=== PATIENT | female | born 1980 | race Caucasian/White ===

== ENCOUNTER 2016-10-22 21:39 | Emergency (ER) | payer BC ==
[2016-10-22 21:50] VITALS: BP 138/67
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
--- NOTE | 2016-10-24 08:03 | CR ---
Right foot: Four views of the right foot were obtained. Comparison: No previous foot exam. Soft tissue swelling is identified. Several lucent lines are identified within the calcaneus compatible with fracture. No additional bony abnormality is identified. Impression: 1. Slightly comminuted fracture within the calcaneus. 2. Soft tissue swelling. Diagnostic code #3
--- NOTE | 2016-10-24 08:03 | CT ---
CT right foot Technique: Multiple axial sections were obtained through the right foot. Reconstructed coronal and sagittal images were reviewed. Comparison: Previous right foot radiograph performed earlier on the same day (9:58 PM). Findings: Mildly comminuted calcaneal fracture is seen. Superior calcaneal fracture line is slightly posterior to the subtalar joint. There is one fracture line more anteriorly within the calcaneus extending into the mid subtalar joint. One fracture line extends into the calcaneocuboid joint. Greatest displacement of the calcaneal fracture is approximately 4.2 mm. No additional fracture is identified within the right foot. Diffuse soft tissue swelling is identified. Impression: 1. Comminuted right calcaneal fracture. Greatest displacement is 4.2 mm. Fracture extends into the mid subtalar joint and into the calcaneocuboid joint. 2. Diffuse soft tissue swelling. Diagnostic code #5 Agree with preliminary report issued by [facility] ([facility] preliminary report dictated on 10/23/16, 12:13 AM Central Time)
== END 2016-10-22 23:30 | disposition home or self-care (01) ==
LOC: JD.ED 21:39
DX: S92.014A Nondisplaced fracture of body of right calcaneus, initial encounter for closed fracture (principal); F17.210 Nicotine dependence, cigarettes, uncomplicated; W13.1XXA Fall from, out of or through bridge, initial encounter; Y92.828 Other wilderness area as the place of occurrence of the external cause
CPT/HCPCS: 73630-26-RT; 73630-RT; 73700-26-RT; 73700-RT; 99283; 99284-25

== ENCOUNTER 2018-04-22 17:17 | Emergency (ER) | payer OTHER, BC ==
[2018-04-22 17:32] VITALS: BP 115/63
[2018-04-22] MEDS ORDERED: Sodium Chloride 0.9% 10 ML Syringe FLUSH PRN (17:39)
[2018-04-22] MEDS ORDERED: HYDROmorphone 1 MG/ML Syringe IVPUSH ONE (17:40)
[2018-04-22] MEDS ORDERED: Ondansetron 4 MG/2 ML SDV IVPUSH ONE (17:40)
--- NOTE | 2018-04-22 17:45 | EDM.PDOC ---
ED HPI GENERAL MEDICAL PROBLEM - General Chief Complaint: Abdominal Pain Stated Complaint: 17 WKS PG Time Seen by Provider: 04/22/18 17:33 Source of Information: Reports: Patient, Family (spouse) History Limitations: Reports: No Limitations - History of Present Illness INITIAL COMMENTS - FREE TEXT/NARRATIVE: 37-year-old female presents to the ED with acute onset of right lower quadrant abdominal pain that started about 20 minutes ago. She was wrestling with her youngster at that time he is 3-1/2-4 years old. She had a meniscus scissors hold and was holding him and tickling him I a wrestling. Jono suddenly in her right lower quadrant of her abdomen that hurts to breathe. Pain radiates slightly towards the right lateral abdominal wall but not into her flank. There is no dysuria urgency or frequency. There's been no bleeding per vagina. She is currently 17 weeks gestation today. Also been working normally. She denies any fever or chills. Onset: Today Onset Date: 04/22/18 Onset Time: 17:15 Duration: Minutes: Location: Reports: Abdomen (Right lower quadrant of the abdomen.) Quality: Reports: Ache, Burning Severity: Moderate Improves with: Reports: Rest (78-10 better if she holds still) Worsens with: Reports: Movement Context: Reports: Other (Spontaneous occurrence while wrestling with her youngster.). 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 EDC has been set a September 29, 2018.) : 2 Para: 1 Social & Family History - Caffeine Use Caffeine Use: Reports: None - Living Situation & Occupation Living situation: Reports: Single, with Significant Other Occupation: Employed ED ROS GENERAL - Review of Systems Review Of Systems: See Below Constitutional: Denies: Fever, Chills, Malaise, Weakness, Fatigue, Decreased Appetite, Weight Loss HEENT: Reports: No Symptoms Respiratory: Reports: Shortness of Breath Cardiovascular: Reports: No Symptoms Endocrine: Reports: No Symptoms GI/Abdominal: Reports: Abdominal Pain (See history of present illness). Denies : Constipation, Diarrhea, Nausea, Stool Incontinence, Vomiting : Reports: Frequency Musculoskeletal: Reports: No Symptoms Skin: Reports: No Symptoms Neurological: Reports: No Symptoms Psychiatric: Reports: No Symptoms Hematologic/Lymphatic: Reports: No Symptoms Immunologic: Reports: No Symptoms ED EXAM, GI/ABD - Physical Exam Exam: See Below Exam Limited By: No Limitations General Appearance: Alert, WD/WN, Moderate Distress (She is in obvious quite significant pain. She's walking very slowly. She is holding onto her right lower quadrant hemoglobin laying on the bed.) Eyes: Bilateral: Normal Appearance Respiratory/Chest: No Respiratory Distress, Lungs Clear, Normal Breath Sounds, Splinting Cardiovascular: Normal Peripheral Pulses (Right splinting she's taking shallow respirations the normal.), Regular Rate, Rhythm, No Edema, No Gallop, No Murmur , No Rub GI/Abdominal Exam: Normal Bowel Sounds, No Abnormal Bruit, Tender (Uterus is well localized to the lateral aspect of the right uterus at the insertion of the round ligament. There is guarding in this area but no rebound tenderness.), Other (Vertically she is 17 weeks gestation with the uterine fundus 2 cm below the umbilicus. She has evidence of a previous umbilical ring.). No: Abnormal Bowel Sounds Back Exam: Normal Inspection, Full Range of Motion. No: CVA Tenderness (L), CVA Tenderness (R) Extremities: Normal Inspection, Normal Range of Motion, Non-Tender, No Pedal Edema Neurological: Alert, Oriented, CN II-XII Intact, Normal Cognition, Normal Gait Psychiatric: Normal Affect, Normal Mood Skin Exam: Warm, Dry, Intact, Normal Color, No Rash Course - Vital Signs Last Recorded V/S: Last Vital Signs Temp 36.3 C 04/22/18 17:27 Pulse 75 04/22/18 17:27 Resp 16 04/22/18 17:27 BP 115/63 04/22/18 17:27 Pulse Ox 100 04/22/18 17:27 - Orders/Labs/Meds Orders: Active Orders 24 hr Category Date Time Status Peripheral IV Care [RC] . DIRECTED Care 04/22/18 17:39 Active Sodium Chloride 0.9% [Saline Flush] Med 04/22/18 17:39 Active 10 ml FLUSH ASDIRECTED PRN Peripheral IV Insertion Adult [OM.PC] Stat Oth 04/22/18 17:39 Ordered Medication Orders Sodium Chloride (Saline Flush) 10 ml FLUSH ASDIRECTED PRN PRN Reason: Keep Vein Open Last Admin: 04/22/18 18:08 Dose: 10 ml Labs: Laboratory Tests 04/22/18 Range/Units 17:50 Urine Color Light yellow (Yellow) Urine Appearance Clear (Clear) Urine pH 7.0 (5.0-8.0) Ur Specific [place] 1.015 (1.005-1.030) Urine Protein Negative (Negative) Urine Glucose (UA) Negative (Negative) Urine Ketones Negative (Negative) Urine Occult Blood Negative (Negative) Urine Nitrite Negative (Negative) Urine Bilirubin Negative (Negative) Urine Urobilinogen 0.2 (0.2-1.0) Ur Leukocyte Esterase Negative (Negative) Urine RBC 0-5 (0-5) /hpf Urine WBC 0-5 (0-5) /hpf Ur Epithelial Cells 0-5 (0-5) /hpf Urine Bacteria Few (FEW) /hpf Urine Mucus Few (FEW) /hpf Meds: Medications Generic Name Dose Route Start Last Admin Trade Name Freq PRN Reason Stop Dose Admin Sodium Chloride 10 ml 04/22/18 17:39 04/22/18 18:08 Saline Flush FLUSH 10 ml ASDIRECTED PRN Administration Keep Vein Open Discontinued Medications Generic Name Dose Route Start Last Admin Trade Name Freq PRN Reason Stop Dose Admin Hydromorphone HCl 0.5 mg 04/22/18 17:40 04/22/18 18:10 Dilaudid IVPUSH 04/22/18 17:41 0.5 mg ONETIME ONE Administration Ondansetron HCl 4 mg 04/22/18 17:40 04/22/18 18:08 Zofran IVPUSH 04/22/18 17:41 4 mg ONETIME ONE Administration - Radiology Interpretation Free Text/Narrative:: 37-year-old female who is 2 para 1 presents to the ED with acute onset of severe right lower quadrant abdominal pain that started about 20 minutes prior to coming to the ED. She was wrestling with her youngster at the time she had him in a scissors hold and was tickling him and thus they were wrestling around. She developed sudden onset of right lower quadrant abdominal pain during this episode. She is walking hunched over slightly and holding onto her right lower quadrant when she comes into the ED. Examination shows bowel sounds are present. She doesn't have any nausea vomiting. Pain is very well localized to the right side of the uterus and overlying abdominal wall right at the insertion of the round ligament. There is no true abdominal guarding or rigidity. Plan urinalysis will be collected. Will start a saline lock and give her Dilaudid 0.5 mg IV with Zofran 4 mg IV for acute pain relief as she is having quite a bit of discomfort. I will then proceed with a bedside ultrasound once she is more comfortable. - Re-Assessments/Exams Free Text/Narrative Re-Assessment/Exam: 04/22/18 18:15 urinalysis is completely normal. 04/22/18 18:23 bedside ultrasound completed. No signs of abruption or subchorionic hemorrhage. Active fetus with good heart tones in the 160s. Gluten gestation. Pain is still very well localized to the insertion of the round ligament on the right side. Pain is much improved after Dilaudid and Zofran. Patient advised to take life easy for the next 4-5 days as it'll be tender with certain movements such as coughing sneezing or lifting. 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 She will follow-up with her BILLING COLLECTIONS SPECIALIST if any further problems occur. Departure - Departure Time of Disposition: 18:24 Disposition: Home, Self-Care 01 Condition: Fair Clinical Impression: Acute abdominal pain in right lower quadrant, Pain of round ligament during , Second trimester - Discharge Information *PRESCRIPTION DRUG MONITORING PROGRAM REVIEWED*: Not Applicable *COPY OF PRESCRIPTION DRUG MONITORING REPORT IN PATIENT MADHAVI: Not Applicable Referrals: PCP,None [Primary Care Provider] - Forms: ED Department Discharge Additional Instructions: Evaluation in the emergency room tonight in regards to acute onset of right lower quadrant abdominal pain while wrestling with your son by dates your 17 weeks . Examination revealed point tenderness at the insertion of the round ligament and into the right side of the upper uterus. Peers at the round ligament insertion site got strain during your wrestling activities. Pain was treated with intravenous Dilaudid 0.5 mg and Zofran 4 mg. Bedside ultrasound shows an active fetus with heart tones in the 160s. No abnormalities of the placenta were identified. Point tenderness still remains at the insertion of the round ligament and not near as severe as it was initially. Suggest ice pack to the area for one half hour out of every 4 hours tonight and possibly tomorrow. Continue Tylenol 650 mg every 6 hours needed for pain relief as needed. Expect some soreness in this area with movement coughing sneezing etc. for the next 5 days. It then should ease up substantially. Follow-up with her OB /PHP ENGINEER if any spotting or bleeding occurs per vagina which I feel is highly unlikely. - My Orders Last 24 Hours: My Active Orders 04/22/18 17:39 Peripheral IV Care [RC] . DIRECTED Sodium Chloride 0.9% [Saline Flush] 10 ml FLUSH ASDIRECTED PRN Peripheral IV Insertion Adult [OM.PC] Stat - Assessment/Plan Last 24 Hours: My Active Orders 04/22/18 17:39 Peripheral IV Care [RC] . DIRECTED Sodium Chloride 0.9% [Saline Flush] 10 ml FLUSH ASDIRECTED PRN Peripheral IV Insertion Adult [OM.PC] Stat
== END 2018-04-22 18:39 | disposition home or self-care (01) ==
LOC: JD.ED 17:17
DX: O9A.212 Injury, poisoning and certain other consequences of external causes complicating pregnancy, second trimester (principal); R10.31 Right lower quadrant pain; R10.2 Pelvic and perineal pain; Z3A.17 17 weeks gestation of pregnancy
CPT/HCPCS: 81001; 96374; 96375; 99284; J1170; J2405

== ENCOUNTER 2018-09-22 11:16 | Inpatient (IN) | payer BC ==
[2018-09-22] MEDS ORDERED: Sodium Chloride 0.9% 10 ML Syringe FLUSH PRN (11:29)
[2018-09-22] MEDS ORDERED: Nalbuphine 20 MG/ML 1 ML Syringe IVPUSH PRN (11:29)
[2018-09-22] MEDS ORDERED: Oxytocin/Lactated Ringers 10 UNIT/1,000 ML BAG IV SCH ×2 (11:30)
--- NOTE | 2018-09-22 12:04 | PCM.LDHP ---
<AnatJohn butler - Last Filed: 09/22/18 14:06> L&D History of Present Illness - General Date of Service: 09/22/18 Admit Problem/Dx: Patient Status Order with Admit Dx/Problem 09/22/18 11:29 Patient Status [ADT] Routine Admission Diagnosis/Problem Admission Diagnosis/Problem 09/22/18 11:52 Induction of labor Source of Information: Patient History Limitations: Reports: No Limitations - History of Present Illness Introduction:: TROY Iqbal is a 38 yo female, , 39W0D GA, NEO 09/29/18, dated by LMP (12/23/17) and consistent with US, who presents to L&D for induction of labor. She reports contractions throughout the night every 3-6 minutes. She reports that movement is present, denies leakage of fluid, vaginal bleeding, headaches, visual changes, or abdominal pain. Patient received routine care at [facility] (14 visits, first at 12 weeks GA), uterine size = dates , BP range 104-134/47-72. Problem list includes history of abnormal paps, cramping during , thrombocytopenia, smoking during , and advanced maternal age. Patient admitted under observation status with a vaginal exam 280/-3/soft/midposition. First Trimester Labs Blood type A+ with negative antibody screen. HCT/HGB 37.9%/13. MCV 87.9. Platelets 137. Rubella immune. VDRL/RPR nonreactive. Urine culture grew E. Coli and treated with Macrobid. HBsAg negative. HIV negative. Chlamydia and Gonorrhea both negative. Second Trimester Labs HCT/HGB 35.3%/11.8. MCV 91.2. Platelets 122. Diabetes screen 68. Third Trimester Labs GBS negative. Past Obstetric History 1. 2010 @ 39W0D GA, male, wt 6lbs 0oz, [facility]; no complications No complications during , delivery, and puerperium No developmental problems in childhood Past Gynecological History 17 yo/30 days/regular Contraception at time of delivery: yes Last pap smear: 03/17/18-negative for any intraepithelial lesion or malignancy Allergies: NKDA Medications 1. Nifedipine 10mg 1 cap PO q8h PRN cramping (stopped at 37 weeks) 2. tabs 1 tab PO qday 3. DHA caps 1 cap PO qday 4. Zantac PRN heartburn Past Medical Hx: seasonal allergies. 2 prior Chlamydia infections back in 1999 and 2005; both successfully treated. Past Surgical Hx: wisdom teeth extraction Social Hx: Denies any alcohol or illicit/recreational drug use during . Smoked about 4 cigarettes/day during current and quit at 19 weeks GA; patient has a 15 year history of smoking. Feels safe at home. Family Hx: No significant family history besides autism in a nephew. Patient denies any family history of cancer, anesthesia related issues, related issues, or bleeding/blood clotting disorders. ROS: A 14-point ROS was performed and is negative besides what is mentioned in the HPI. Physical Exam General: Alert and oriented, no acute distress Vital signs: BP 104/62, weight 148 FHR: 140 Movement: present HEENT: Head atraumatic without deformities. Moist mucus membranes. No conjunctival erythema or injection. Neck: Thyroid midline with no masses or tenderness. No lymphadenopathy. Lungs: CTA bilaterally. Back: No CVA tenderness. Full ROM. Heart: RRR, no murmurs. Abdomen: Gravid, nontender Cervical Exam: 2/80/-3/soft/midposition Presentation: Vertex Extremities: Mild lower extremity edema, nonpitting. Patellar reflex 2+ bilaterally. Full ROM in all extremities. Skin: Warm, dry, and intact with normal capillary refill. No rashes or erythema. Psych: Normal mood and affect. Assessment 1. 38 yo female @ 39W0D GA who presents for induction of labor 2. High risk due to advanced maternal age and h/o smoking during Plan 1. Admit to L&D for observation and labor induction 2. 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 EDC has been set a September 29, 2018.) Social & Family History - Caffeine Use Caffeine Use: Reports: None - Living Situation & Occupation Living situation: Reports: Single, with Significant Other Occupation: Employed H&P Review of Systems - Review of Systems: Review Of Systems: See Below L&D Exam - Exam Exam: See Below - Cruz Score Cruz Score Cervix Position: Midposition Cruz Score Consistency: Soft Cruz Score Effacement: >80% Cruz Score Dilation: 1-2 cm Cruz Score 's Station: -3 Cruz Score Total: 7 - Patient Data Result Diagrams: 09/22/18 11:45 Problem List Initiated/Reviewed/Updated: No Orders Last 24hrs: Active Orders 24 hr Category Date Time Status Patient Status [ADT] Routine ADT 09/22/18 11:29 Active Activity as Tolerated [RC] PFP Care 09/22/18 11:29 Active Communication Order [RC] ASDIRECTED Care 09/22/18 11:29 Active Heart Tones [RC] ASDIRECTED Care 09/22/18 11:29 Active Non Stress Test [RC] PER UNIT ROUTINE Care 09/22/18 11:29 Active Notify Provider [RC] PFP Care 09/22/18 11:29 Active Notify Provider [RC] PRN Care 09/22/18 11:29 Active Peripheral IV Care [RC] . DIRECTED Care 09/22/18 11:29 Active Vital Signs [RC] PER UNIT ROUTINE Care 09/22/18 11:29 Active Regular Diet [DIET] Diet 09/22/18 Lunch Active CBC WITH AUTO DIFF [HEME] Stat Lab 09/22/18 11:45 Received RAPID PLASMA REAGIN,RPR [CHEM] Routine Lab 09/22/18 11:29 Ordered Lactated Ringers [Ringers, Lactated] 1,000 ml Med 09/22/18 11:30 Active IV ASDIRECTED Nalbuphine [Nubain] Med 09/22/18 11:29 Active 10 mg IVPUSH Q2H PRN Oxytocin/Lactated Ringers [Pitocin in LR 10 Units/1,000 Med 09/22/18 11:30 Active ML] 10 unit in 1,000 ml IV .CONTINUOUS Oxytocin/Lactated Ringers [Pitocin in LR 10 Units/1,000 Med 09/22/18 11:30 Active ML] 10 unit in 1,000 ml IV TITRATE Sodium Chloride 0.9% [Saline Flush] Med 09/22/18 11:29 Active 10 ml FLUSH ASDIRECTED PRN Electronic Heart Tones Ext w TOCO [WOMSER] Ot 09/22/18 11:29 Ordered Routine Electronic Heart Tones Internal [WOMSER] Per Unit Ot 09/22/18 11:29 Ordered Routine Peripheral IV Insertion Adult [OM.PC] Routine Ot 09/22/18 11:29 Ordered Resuscitation Status Routine Resus Stat 09/22/18 11:29 Ordered Medication Orders Lactated Ringer's (Ringers, Lactated) 1,000 mls @ 100 mls/hr IV ASDIRECTED TERA Oxytocin/Lactated Ringer's (Pitocin In Lr 10 Units/1,000 Ml) 10 unit in 1,000 mls @ 100 mls/hr IV .CONTINUOUS TERA Oxytocin/Lactated Ringer's (Pitocin In Lr 10 Units/1,000 Ml) 10 unit in 1,000 mls @ 12 mls/hr IV TITRATE TERA; Protocol Nalbuphine HCl (Nubain) 10 mg IVPUSH Q2H PRN PRN Reason: pain Sodium Chloride (Saline Flush) 10 ml FLUSH ASDIRECTED PRN PRN Reason: Keep Vein Open <Bruce Luciano F - Last Filed: 09/23/18 05:55> L&D History of Present Illness - General Admit Problem/Dx: Admission Diagnosis/Problem Admission Diagnosis/Problem - History of Present Illness Introduction:: Assessment: 1. 38-year-old 2 para 1001 white female at 39-0/7 weeks gestational age admitted for early labor 2. High-risk due to advanced maternal age and history of smoking during . Plan: 1. Admit to L&D for early labor 2. Routine labor care 3. RPR upon admission along with CBC 4. IV access 5. Support breast-feeding decision in appearance 6. Epidural analgesia for pain control labor and delivery L&D Exam - Vital Signs Vital Signs: Last Vital Signs Temp 37.0 C 09/22/18 11:29 Pulse 70 09/23/18 03:03 Resp 16 09/23/18 03:03 BP 116/62 09/23/18 03:03 Pulse Ox 97 09/23/18 03:03 - Patient Data Lab Results Last 24 hrs: Laboratory Results - last 24 hr 09/22/18 09/22/18 Range/Units 11:45 11:45 WBC 7.18 (3.98-10.04) K/mm3 RBC 3.71 L (3.98-5.22) M/mm3 Hgb 11.1 L (11.2-15.7) gm/L Hct 33.0 L (34.1-44.9) % MCV 88.9 (79.4-94.8) fl MCH 29.9 (25.6-32.2) pg MCHC 33.6 (32.2-35.5) g/dl RDW Std Deviation 42.7 (36.4-46.3) fL Plt Count 134 L (182-369) K/mm3 MPV 13.0 H (9.4-12.3) fl Neut % (Auto) 62.6 (34.0-71.1) % Lymph % (Auto) 29.0 (19.3-51.7) % [place] % (Auto) 7.5 (4.7-12.5) % Eos % (Auto) 0.7 (0.7-5.8) Baso % (Auto) 0.1 (0.1-1.2) % Neut # (Auto) 4.49 (1.56-6.13) K/mm3 Lymph # (Auto) 2.08 (1.18-3.74) K/mm3 [place] # (Auto) 0.54 H (0.24-0.36) K/mm3 Eos # (Auto) 0.05 (0.04-0.36) K/mm3 Baso # (Auto) 0.01 (0.01-0.08) K/mm3 RPR Non-reactive (NONREACTIVE) Result Diagrams: 09/22/18 11:45 Orders Last 24hrs: Active Orders 24 hr Category Date Time Status Activity as Tolerated [RC] PER UNIT ROUTINE Care 09/23/18 02:29 Active Heart Tones [RC] ASDIRECTED Care 09/22/18 11:29 Inactive Vital Signs [RC] 03,09,15,21 Care 09/23/18 02:29 Active Regular Diet [DIET] Diet 09/23/18 Dinner Active Acetaminophen [Tylenol] Med 09/23/18 02:29 Active 650 mg PO Q4H PRN Benzocaine/Menthol [Dermoplast Pain Relief [place]] Med 09/23/18 02:29 Active See Dose Instructions TOP ASDIRECTED PRN Docusate Sodium [Colace] Med 09/23/18 02:29 Active 100 mg PO BID PRN Ibuprofen [Motrin] Med 09/23/18 02:29 Active 600 mg PO Q4H PRN Lanolin [Lansinoh HPA] Med 09/23/18 02:29 Active See Dose Instructions TOP ASDIRECTED PRN Vit with Ca/FA/Iron [ Plus Iron] Med 09/23/18 09:00 Active 1 each PO DAILY Witch Yuki [Tucks] Med 09/23/18 02:29 Active 1 pad TOP ASDIRECTED PRN Assess Lochia [WOMSER] Per Unit Routine Ot 09/23/18 02:29 Ordered Assess Uterine Involution [WOMSER] Per Unit Routine Ot 09/23/18 02:29 Ordered Breast Pump [WOMSER] Per Unit Routine Ot 09/23/18 02:29 Ordered Heat Therapy [OM.PC] PRN Ot 09/23/18 02:29 Ordered Heat Therapy [OM.PC] PRN Ot 09/24/18 02:29 Ordered Ice Therapy [OM.PC] Per Unit Routine Ot 09/23/18 02:29 Ordered Medication Administration Instruction [OM.PC] Routine Ot 09/23/18 02:29 Ordered Perineal Care [OM.PC] Per Unit Routine Oth 09/23/18 02:29 Ordered Sitz Bath [OM.PC] Per Unit Routine Ot 09/23/18 02:29 Ordered Resuscitation Status Routine Resus Stat 09/22/18 11:29 Ordered Medication Orders Acetaminophen (Tylenol) 650 mg PO Q4H PRN PRN Reason: mild pain or fever Benzocaine/Menthol (Dermoplast Pain Relief [place]) 0 gm TOP ASDIRECTED PRN PRN Reason: Perineal Comfort Measure Docusate Sodium (Colace) 100 mg PO BID PRN PRN Reason: Constipation Emollient Ointment (Lansinoh Hpa) 0 gm TOP ASDIRECTED PRN PRN Reason: Sore Nipples Ibuprofen (Motrin) 600 mg PO Q4H PRN PRN Reason: Mild pain or fever Prenat Multivit/[place]/Iron/Folic Ac ( Plus Iron) 1 each PO DAILY TERA Witch Yuki (Tucks) 1 pad TOP ASDIRECTED PRN PRN Reason: Pain
[2018-09-22] MEDS: Lactated Ringers 1,000 ML IV SCH ×4 (14:30→20:54)
--- NOTE | 2018-09-22 16:36 | PCM.PREANE ---
Preanesthetic Assessment - Procedure Proposed Procedure: christo - Anesthesia/Transfusion/Family Hx Anesthesia History: Prior Anesthesia Without Reaction Family History of Anesthesia Reaction: No Transfusion History: No Prior Transfusion(s) - Review of Systems General: No Symptoms Pulmonary: No Symptoms Cardiovascular: No Symptoms Gastrointestinal: No Symptoms Neurological: No Symptoms Other: Reports: None - Physical Assessment O2 Sat by Pulse Oximetry: 100 Respiratory Rate: 16 Vital Signs: Last Vital Signs Temp 98.6 F 09/22/18 11:29 Pulse 78 09/22/18 11:29 Resp 16 09/22/18 11:29 BP 121/71 09/22/18 11:29 Pulse Ox 100 09/22/18 11:29 Height: 5 ft 4 in Weight: 67.132 kg ASA Class: 2 Mental Status: Alert & Oriented x3 Airway Class: Mallampati = 1 Dentition: Reports: Normal Dentition Thyro-Mental Finger Breadths: 3 Mouth Opening Finger Breadths: 3 ROM/Head Extension: Full Lungs: Clear to Auscultation, Normal Respiratory Effort Cardiovascular: Regular Rate, Regular Rhythm - Lab Values: Laboratory Last Values WBC 7.18 K/mm3 (3.98-10.04) 09/22/18 11:45 RBC 3.71 M/mm3 (3.98-5.22) L 09/22/18 11:45 Hgb 11.1 gm/L (11.2-15.7) L 09/22/18 11:45 Hct 33.0 % (34.1-44.9) L 09/22/18 11:45 MCV 88.9 fl (79.4-94.8) 09/22/18 11:45 MCH 29.9 pg (25.6-32.2) 09/22/18 11:45 MCHC 33.6 g/dl (32.2-35.5) 09/22/18 11:45 RDW Std Deviation 42.7 fL (36.4-46.3) 09/22/18 11:45 Plt Count 134 K/mm3 (182-369) L 09/22/18 11:45 MPV 13.0 fl (9.4-12.3) H 09/22/18 11:45 Neut % (Auto) 62.6 % (34.0-71.1) 09/22/18 11:45 Lymph % (Auto) 29.0 % (19.3-51.7) 09/22/18 11:45 [place] % (Auto) 7.5 % (4.7-12.5) 09/22/18 11:45 Eos % (Auto) 0.7 (0.7-5.8) 09/22/18 11:45 Baso % (Auto) 0.1 % (0.1-1.2) 09/22/18 11:45 Neut # (Auto) 4.49 K/mm3 (1.56-6.13) 09/22/18 11:45 Lymph # (Auto) 2.08 K/mm3 (1.18-3.74) 09/22/18 11:45 [place] # (Auto) 0.54 K/mm3 (0.24-0.36) H 09/22/18 11:45 Eos # (Auto) 0.05 K/mm3 (0.04-0.36) 09/22/18 11:45 Baso # (Auto) 0.01 K/mm3 (0.01-0.08) 09/22/18 11:45 RPR Non-reactive (NONREACTIVE) 09/22/18 11:45 - Allergies Allergies/Adverse Reactions: Allergies Allergy/AdvReac Type Severity Reaction Status Date / Time No Known Allergies Allergy Verified 09/15/18 02:32 - Blood Blood Available: No - Acknowledgements Anesthesia Type Planned: Epidural Pt an Appropriate Candidate for the Planned Anesthesia: Yes Alternatives and Risks of Anesthesia Discussed w Pt/Guardian: Yes Pt/Guardian Understands and Agrees with Anesthesia Plan: Yes PreAnesthesia Questionnaire - Past Health History Medical/Surgical History: Denies Medical/Surgical History HEENT History: Reports: Impaired Vision Cardiovascular History: Reports: None Respiratory History: Reports: None Gastrointestinal History: Reports: GERD (with preg) [employer]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 EDC has been set a September 29, 2018.) : 2 (39) Para: 1 Musculoskeletal History: Reports: None - Past Surgical History HEENT Surgical History: Reports: Oral Surgery - SUBSTANCE USE Smoking Status *Q: Former Smoker (quit a few months ago) Tobacco Use Within Last Twelve Months: Cigarettes Second Hand Smoke Exposure: Yes Days Per Week of Alcohol Use: 0 Recreational Drug Use History: No - HOME MEDS Home Medications: Home Meds Docosahexanoic Acid [ Dha] 200 mg PO DAILY 04/22/18 [History] - CURRENT (IN HOUSE) MEDS Current Meds: Current Medications Lactated Ringer's (Ringers, Lactated) 1,000 mls @ 100 mls/hr IV ASDIRECTED TERA Last Admin: 09/22/18 14:30 Dose: 100 mls/hr Oxytocin/Lactated Ringer's (Pitocin In Lr 10 Units/1,000 Ml) 10 unit in 1,000 mls @ 100 mls/hr IV .CONTINUOUS TERA Oxytocin/Lactated Ringer's (Pitocin In Lr 10 Units/1,000 Ml) 10 unit in 1,000 mls @ 12 mls/hr IV TITRATE TERA; Protocol Last Titration: 09/22/18 16:08 Dose: 4 munits/min, 24 mls/hr Nalbuphine HCl (Nubain) 10 mg IVPUSH Q2H PRN PRN Reason: pain Sodium Chloride (Saline Flush) 10 ml FLUSH ASDIRECTED PRN PRN Reason: Keep Vein Open
[2018-09-22] MEDS ORDERED: Bupivacaine/fentaNYL/NS 100 ML Bag EPIDUR PRN (16:38)
[2018-09-22] MEDS ORDERED: fentaNYL 100 MCG/2 ML SDV EPIDUR PRN (16:38)
[2018-09-22] MEDS ORDERED: ePHEDrine 50 MG/ML SDV IVPUSH PRN (16:38)
[2018-09-22] MEDS ORDERED: diphenhydrAMINE 50 MG/ML SDV IVPUSH PRN (16:38)
[2018-09-22] MEDS ORDERED: Sodium Chloride 0.9% 1,000 ML ONE (19:30)
[2018-09-22] MEDS ORDERED: Sodium Chloride 0.9% 1,000 ML IRR PRN (21:26)
[2018-09-22] MEDS ORDERED: Calcium Carbonate 500 MG Tab.Chew PO PRN (23:15)
[2018-09-23] MEDS ORDERED: Bupivacaine 0.25% 10 ML SDV ONE
--- NOTE | 2018-09-23 00:57 | PCM.SN ---
- Free Text/Narrative Note: Farida is a 38-year-old 2 now para 2002 white female who was sent from clinic to labor and delivery in early active labor on 09/22/2018. Patient made slow but steady progress to complete cervical dilation and went on to deliver a viable, garcia, female Apgars of 8 and 9, a weight of 2680 g (5 pounds , 15 oz), length of 19.5 inches , in the SHAWN position at 0034 hours on 2018.. The baby was placed on mom's abdomen, cord was allowed to pulsate for approximately 1-2 minutes and then was clamped. The cord was cut by the baby's father. Umbilical cord had 3 vessels. IV Pitocin was started after delivery of the baby to facilitate increase uterine tone and decreased likelihood of bleeding. The placenta delivered in a [facility] presentation at 0041 hours, appeared complete and intact and was discarded per patient desire. Estimated blood loss was approximately 100 mL. The perineum was found to be intact and no suturing was required. Some superficial abrasions were noted. The patient plans to breast-feed. Condition: Good
[2018-09-23] MEDS ORDERED: Benzocaine/Menthol 20%-0.5% Spray 56 GM Canister TOP PRN (02:29)
[2018-09-23] MEDS ORDERED: Docusate Sodium 100 MG Cap PO PRN (02:29)
[2018-09-23] MEDS ORDERED: Witch Hazel Medicated Pads 40/Jar TOP PRN (02:29)
[2018-09-23] MEDS ORDERED: Acetaminophen 325 MG Tab PO PRN (02:29)
[2018-09-23] MEDS ORDERED: Lanolin 100% Cream 7 GM Tube TOP PRN (02:29)
--- NOTE | 2018-09-23 06:00 | PCM.SN ---
- Free Text/Narrative Note: Date of delivery: note: Patient is doing well in the period. Minimal lochia, voiding well, ambulated without problems. Nursing without concerns. Patient is afebrile, vital signs are stable Abdomen is flat, soft, uterus is below the umbilicus and is firm and nontender. Legs are nontender. Assessment: recovery normal. Plan: Routine care. Patient be discharged home within the next 24-48 hours.
--- NOTE | 2018-09-23 07:22 | PCM48HPAN ---
Post Anesthesia Note - EVALUATION WITHIN 48HRS OF ANESTHETIC Vital Signs in Normal Range: Yes Patient Participated in Evaluation: Yes Respiratory Function Stable: Yes Airway Patent: Yes Cardiovascular Function Stable: Yes Hydration Status Stable: Yes Pain Control Satisfactory: Yes Nausea and Vomiting Control Satisfactory: Yes Mental Status Recovered: Yes
[2018-09-23] MEDS ORDERED: Prenatal Multivitamin with Calcium/Folic Acid/Iron Tab PO SCH (09:00)
[2018-09-23] MEDS: Ibuprofen 600 MG Tab PO PRN ×2 (09:05→20:39)
--- NOTE | 2018-09-24 06:03 | PCM.DCSUM1 ---
Discharge Summary - Hospital Course Free Text/Narrative:: Farida is a 38-year-old 2 now para 2002 white female who was sent from clinic to labor and delivery in early active labor on 09/22/2018. Patient made slow but steady progress to complete cervical dilation and went on to deliver a viable, garcia, female Apgars of 8 and 9, a weight of 2680 g (5 pounds , 15 oz), length of 19.5 inches , in the SHAWN position at 0034 hours on 2018.. The baby was placed on mom's abdomen, cord was allowed to pulsate for approximately 1-2 minutes and then was clamped. The cord was cut by the baby's father. Umbilical cord had 3 vessels. IV Pitocin was started after delivery of the baby to facilitate increase uterine tone and decreased likelihood of bleeding. The placenta delivered in a [place]oney presentation at 0041 hours, appeared complete and intact and was discarded per patient desire. Estimated blood loss was approximately 100 mL. The perineum was found to be intact and no suturing was required. Some superficial abrasions were noted. The patient plans to breast-feed. She is doing well. Has minimal lochia, voiding well and is ambulating without concerns. She is desiring discharge home today. Diagnosis: Stroke: No - Discharge Data Discharge Date: 09/24/18 Discharge Disposition: Home, Self-Care 01 Condition: Good - Patient Instructions Diet: Regular Diet as Tolerated (Nursing diet was increased calories and calcium as recommended) Activity: As Tolerated (No intercourse or tampons until bleeding resolves) Driving: May Drive Today Showering/Bathing: May Shower (May take a bath) Notify Provider of: Fever, Increased Pain, Swelling and Redness, Nausea and/or Vomiting - Discharge Plan Home Medications: Home Meds Docosahexanoic Acid [ Dha] 200 mg PO DAILY 04/22/18 [History] Acetaminophen [Tylenol] 650 mg PO Q4H PRN tablet 09/24/18 [Rx] Ibuprofen [Motrin] 600 mg PO Q4H PRN tablet 09/24/18 [Rx] Vit with Ca/FA/Iron [ Plus Iron] 1 each PO DAILY tablet [Rx] - Discharge Summary/Plan Comment DC Time >30 min.: No Discharge Summary/Plan Comment: Discharge instructions: 1. Discharge home 2. Diet, activity and follow-up discussed with patient. Recommend nursing diet with increased calories and calcium. 3. Precautions given concern increased pain, bleeding, temperature, signs/ symptoms of DVT/PE. 4. Medications per home medication was printed, discussed with and given to the patient. 5. Return to clinic-[facility]. Luciano[facility] in 2 weeks. Diagnosis: Term -delivered Condition: Good - Patient Data Vitals - Most Recent: Last Vital Signs Temp 37.3 C 09/24/18 03:45 Pulse 62 09/24/18 03:45 Resp 14 09/24/18 03:45 BP 111/59 L 09/24/18 03:45 Pulse Ox 97 09/24/18 03:45 Weight - Most Recent: 67.132 kg Med Orders - Current: Current Medications Acetaminophen (Tylenol) 650 mg PO Q4H PRN PRN Reason: mild pain or fever Benzocaine/Menthol (Dermoplast Pain Relief [place]) 0 gm TOP ASDIRECTED PRN PRN Reason: Perineal Comfort Measure Docusate Sodium (Colace) 100 mg PO BID PRN PRN Reason: Constipation Emollient Ointment (Lansinoh Hpa) 0 gm TOP ASDIRECTED PRN PRN Reason: Sore Nipples Ibuprofen (Motrin) 600 mg PO Q4H PRN PRN Reason: Mild pain or fever Last Admin: 09/23/18 20:39 Dose: 600 mg Prenat Multivit/[place]/Iron/Folic Ac ( Plus Iron) 1 each PO DAILY TERA Last Admin: 09/23/18 09:04 Dose: 1 each [place] (Tucks) 1 pad TOP ASDIRECTED PRN PRN Reason: Pain Discontinued Medications Bupivacaine HCl (Sensorcaine-Mpf 0.25%) 10 ml .ROUTE .STK-MED ONE Stop: 09/23/18 00:01 Calcium Carbonate/Glycine (Tums) 1,000 mg PO Q2HR PRN PRN Reason: Indigestion Last Admin: 09/22/18 23:24 Dose: 1,000 mg Diphenhydramine HCl (Benadryl) 25 mg IVPUSH Q6H PRN PRN Reason: pruritis Ephedrine Sulfate (Ephedrine Sulfate) 5 mg IVPUSH ASDIRECTED PRN PRN Reason: Hypotension Fentanyl (Sublimaze) 100 mcg EPIDUR Q3H PRN PRN Reason: Pain Last Admin: 09/22/18 17:07 Dose: 100 mcg Fentanyl/Bupivacaine HCl (Fentanyl/Bupivacaine/Ns 2 Mcg-0.125% 100 Ml) 100 ml EPIDUR ASDIRECTED PRN PRN Reason: Pain Last Admin: 09/22/18 17:06 Dose: 100 ml Lactated Ringer's (Ringers, Lactated) 1,000 mls @ 100 mls/hr IV ASDIRECTED TERA Last Admin: 09/22/18 20:54 Dose: 100 mls/hr Oxytocin/Lactated Ringer's (Pitocin In Lr 10 Units/1,000 Ml) 10 unit in 1,000 mls @ 100 mls/hr IV .CONTINUOUS TERA Oxytocin/Lactated Ringer's (Pitocin In Lr 10 Units/1,000 Ml) 10 unit in 1,000 mls @ 12 mls/hr IV TITRATE TERA; Protocol Last Titration: 09/23/18 00:35 Dose: 999 munits/min, 5,994 mls/hr Sodium Chloride (Normal Saline) Confirm Administered Dose 1,000 mls @ as directed .ROUTE .[facility]-MED ONE Stop: 09/22/18 19:31 Last Admin: 09/22/18 20:55 Dose: 100 mls/hr Sodium Chloride (Sodium Chloride 0.9%) 1,000 mls @ 100 mls/hr IRR ASDIRECTED PRN PRN Reason: amnioinfusion Nalbuphine HCl (Nubain) 10 mg IVPUSH Q2H PRN PRN Reason: pain Sodium Chloride (Saline Flush) 10 ml FLUSH ASDIRECTED PRN PRN Reason: Keep Vein Open
[2018-09-24] MEDS: Ibuprofen 600 MG Tab PO PRN (06:21)
[2018-09-24 09:09] VITALS: BP 123/65
== END 2018-09-24 12:40 | disposition home or self-care (01) | DRG 560 ==
LOC: JD.OBCHECK 11:16 → JD.OB 11:21 → JD.OBCHECK 11:28 → JD.OB 11:29 → OBSVTOIN 09-23 00:34 → JD.OB 09-23 00:35
PROVIDERS: ADMIT Obstetrics & Gynecology; ATTEND Obstetrics & Gynecology
PROC: 10E0XZZ Delivery of Products of Conception, External Approach (ICD-10-PCS; principal; 2018-09-23)
PROC: 3E033VJ Introduction of Other Hormone into Peripheral Vein, Percutaneous Approach (ICD-10-PCS; 2018-09-23)
PROC: 00HU33Z Insertion of Infusion Device into Spinal Canal, Percutaneous Approach (ICD-10-PCS; 2018-09-23)
DX: O99.334 Smoking (tobacco) complicating childbirth (principal); F17.210 Nicotine dependence, cigarettes, uncomplicated; O99.12 Other diseases of the blood and blood-forming organs and certain disorders involving the immune mechanism complicating childbirth; Z3A.39 39 weeks gestation of pregnancy; Z37.0 Single live birth; D69.6 Thrombocytopenia, unspecified
CPT/HCPCS: 36415; 51702; 59025; 59409; 85025; 86592; A9270-GY; J2590; J3010; J3490; J7040; J7120

== ENCOUNTER 2023-11-05 20:11 | Emergency (ER) | payer BC, MEDICAID ==
[2023-11-05 22:11] VITALS: BP 111/69; PULSE 87
== END 2023-11-05 21:44 | disposition home or self-care (01) ==
LOC: JD.ED 20:11
DX: M79.671 Pain in right foot (principal); W18.40XA Slipping, tripping and stumbling without falling, unspecified, initial encounter; Y93.68 Activity, volleyball (beach) (court)
CPT/HCPCS: 73630-26-RT; 73630-RT; 99283